=== PATIENT | female | born 1965 | race Caucasian/White ===

== ENCOUNTER 2020-10-31 05:50 | Day surgery (SDC) | payer BC ==
[~2020-10-31] VITALS: Ht 177.8 cm; Wt 84.1 kg
--- NOTE | 2020-10-31 06:23 | NUR ---
PT HAS USED NOSE SPRAY ON ARRIVAL AND REPEATED IN 10 MIN.
--- NOTE | 2020-10-31 10:00 | NUR ---
10/31/20 1000 Norah Inman 0956- PT ARRIVES TO PACU NONAROUSABLE TO NOXIOUS STIMULI WITH AN OPA IN PLACE. RESP EVEN AND UNLABORED. OXYGEN SAT HIGH 90'S TO 100% ON 6L VIA MASK.
--- NOTE | 2020-10-31 11:10 | NUR ---
1055 RETURNED FROM PACU NEEDS TO VOID. ASSISTED TO BR VOIDS LARGE AMT. RETURNS TO BED WARMER HOSE ON PT PER REQUEST. REQUESTS PAIN MEDICINE
--- NOTE | 2020-10-31 11:19 | NUR ---
HAS EATEN JELLO. TRAMADOL GIVEN REFUSES TYLENOL. RATES PAIN 5/10.
--- NOTE | 2020-10-31 12:02 | NUR ---
FEELS BETTER PAIN RATING 2/10. SHOWN HOW TO CHANGE MUSTACHE DRESSING AND SUPPLIES GIVEN.
--- NOTE | 2020-10-31 13:00 | NUR ---
1210 NOSE DRIP PAD CHANGED X2 WHILE HERE. SHOWN HOW TO CHANGE.
--- NOTE | 2020-10-31 14:33 | NUR ---
PT ALERT, ORIENTED AND SUPPORTED BY HER SIG. OTHER DAXA. PT IS OBVIOUSLY ANXIOUS ABOUT SURGERY. SPENT TIME DEBRIEFING AND COMFORTING. PT REQUESTED PRAYER TEARS FLOWED. WILL FOLLOW NEEDED
--- NOTE | 2020-11-21 08:01 | OR ---
[facility] [address], [place] [address] Signed DATE OF OPERATION: 10/31/2020 SURGEON: Liam Lugo MD PREOPERATIVE DIAGNOSES: Chronic frontal sinusitis, chronic ethmoiditis, chronic sphenoiditis, chronic maxillary sinusitis, turbinate hypertrophy with nasal obstruction, chronic sinus headaches. POSTOPERATIVE DIAGNOSES: Chronic frontal sinusitis, chronic ethmoiditis, chronic sphenoiditis, chronic maxillary sinusitis, turbinate hypertrophy with nasal obstruction, chronic sinus headaches. PROCEDURES: 1. Bilateral frontoethmoidectomy, 89128-92. 2. Bilateral endoscopic sphenoidotomies, 03137-07. 3. Bilateral maxillary antrostomies, endoscopic 70017-08. 4. Left submucous resection of inferior turbinates 70011. INDICATIONS: This 55-year-old female has had sinus headaches essentially all her life. She also in the last decade has had progressive nasal obstruction, tells she does not breathe through her nose anymore, especially at night when she is trying to sleep. The patient did not have a deviation of the septum, but did have very large turbinates and ultimately, a CT scan to look at her sinuses demonstrated ethmoid disease and atelectatic right maxillary sinus with hypodevelopment filled and was opacified, filled with mucus presumably. The patient has tried nasal steroid sprays, decongestants, antihistamines, all the usual with minimal success. Because of failure to treat her disease and her symptoms and her quality of life with medical treatment, surgery was indicated. DESCRIPTION OF PROCEDURE: The patient was placed in the supine position, had an orotracheal intubation, was placed under general anesthesia. Photographs were taken endoscopically preop, intraop and postoperatively. The right side was approached first. There was a sascha bullosa on that side, which also helped to obstruct the ostiomeatal unit, this was injected with 1.5 mL 1% lidocaine 1:200,000 epinephrine as well as the lateral wall. The sickle knife was used to stab that sascha bullosa of the middle turbinates. The punch scissors were then insinuated into the turbinates cutting that and working its way back posteriorly until the lateral 180 degrees was removed. Kerrison forceps and microdebrider were used to shave that cleanly. Then using a 30 degree scope, careful dissection was done on Electronically Signed By: LIAM LUGO MD 11/21/20 0801 PATIENT NAME: MAEGAN ANTON OPERATIVE REPORT DATE OF : 65 REPORT #: [id number] PHYSICIAN: LIAM LUGO MD PCP: FLAKITA OROSCO MD REPORT IS CONFIDENTIAL AND NOT TO BE RELEASED WITHOUT AUTHORIZATION [facility] [address], [place] [address] Signed that lateral wall because the orbital floor was basically exposed because of such a small maxillary sinus. The uncinate process present, but was quite vestigial. Those pieces were picked off individually with a pediatric Blakesley forceps exposing finally, the natural ostium and was found with an ostium searcher and then pulling that anteriorly until some more bone could be removed and then, the backbiting forceps could be finally insinuated and then a microdebrider until very thick mucus, almost solid core was suctioned out of the maxillary sinus. Complete ethmoidectomy was then done opening up the ethmoid bulla and working posteriorly, a transethmoid sphenoidotomy was performed into a very large sphenoid sinus. Mucosa and bone were cut with a Kerrison forceps and the microdebrider since the ceiling to this sphenoid sinus could be visualized, then the rostrum was removed. Changing to a 70-degree scope, dissection was done along the base of skull going up into the frontal sinus. The Kerrison frontal sinus punch was used to remove the beak of the frontal sinus and a very wide frontal sinusotomy was possible. Then, the same dissection was done on the left side. Another 1.5 cc injection of the lidocaine was injected. No sascha bullosa on the left side, but a reduction partial turbinectomy was done on the middle turbinate on that side to widen the middle meatus. Normally formed uncinate process was incised with a sickle knife and then the Thru-Cut ethmoid punch placed in the naris to remove the mucosa and the uncinate process entirely. The backbiting forceps was used to resect going backwards, opening up the maxillary sinus and also, the posterior fontanelle was opened further to widen the maxillary ostium. A complete ethmoidectomy was then done again. A transostial sphenoidotomy performed open to a smaller, much smaller sphenoid sinus. Then, the base of skull was dissected out going superiorly up into the frontal sinus. Frontal sinus was tightly closed on that left side with mucosal edema and with the ethmoid sinus formation. Once that could be cannulated, then it was gradually widened, the Kerrison frontal sinus punch was used to remove the beak again and good wide frontal sinusotomy done on that side as well. After removing all the ragged pieces of mucosa and trimming carefully with shards of bone removed, the large inferior turbinate was then reduced. Injecting another couple of mL of lidocaine, a stab incision was made anteriorly sharply dissecting the mucosa off the turbinate bone followed by the caudal dissection tool to elevate that medially and laterally and then, the Andrew forceps could be used to remove the stalk, which really helped lateralize that middle turbinate and then, the bone was fractured in little pieces and removed from the airway. ESTIMATED BLOOD LOSS: About 200 mL. Nasopore with mupirocin ointment was placed on the left side to help prevent the lateralization of the remnant of the middle turbinates. The patient went to recovery in good condition. There were no complications. Electronically Signed By: LIAM LUGO MD 11/21/20 0801 PATIENT NAME: MAEGAN ANTON OPERATIVE REPORT DATE OF : 65 REPORT #: [id number] PHYSICIAN: LIAM LUGO MD PCP: FLAKITA OROSCO MD REPORT IS CONFIDENTIAL AND NOT TO BE RELEASED WITHOUT AUTHORIZATION [address] [address] Signed Liam Lugo MD [facility] /[id number] Copies: ~ Electronically Signed By: LIAM LUGO MD 11/21/20 0801 PATIENT NAME: MAEGAN ANTON OPERATIVE REPORT DATE OF : 65 REPORT #: [id number] PHYSICIAN: LIAM LUGO MD PCP: FLAKITA OROSCO MD REPORT IS CONFIDENTIAL AND NOT TO BE RELEASED WITHOUT AUTHORIZATION
== END 2020-10-31 12:15 | disposition home or self-care (01) ==
LOC: OPS 05:50 → DS 05:50 → OPS 06:45 → DS 06:45 → OPS 12:15
PROVIDERS: ATTEND Otolaryngology
PROC: 09TV8ZZ Resection of Left Ethmoid Sinus, Via Natural or Artificial Opening Endoscopic (ICD-10-PCS; principal; 2020-10-31 06:45)
PROC: 09TU8ZZ Resection of Right Ethmoid Sinus, Via Natural or Artificial Opening Endoscopic (ICD-10-PCS; 2020-10-31 06:45)
DX: J32.8 Other chronic sinusitis (principal); J34.3 Hypertrophy of nasal turbinates; J34.89 Other specified disorders of nose and nasal sinuses; R51.9 Headache, unspecified
CPT/HCPCS: 00160; J1100; J2001; J2250; J2405; J2704; J3010; J3490; J7121